=== PATIENT | male | born 1950 | race Caucasian/White ===

== ENCOUNTER 2017-06-23 10:57 | Inpatient (IN) | payer MEDICARE ==
[~2017-06-23] VITALS: Ht 177.8 cm; Wt 99.8 kg
--- OUTSIDE RECORDS SUMMARY | 2017-06-23 11:00 | XMS REPORT ---
Author Author [facility] Address Unknown Phone Unavailable Care Team Providers Care [employer] Name Role Phone Unavailable Unavailable Problems This patient has no known problems. Allergies, Adverse Reactions, Alerts This patient has no known allergies or adverse reactions. Medications This patient has no known medications. Encounters Start Date/Time End Date/Time Encounter Type Admission Type Attending [facility] Facility Care Department Encounter ID 2017-10-10 00:00:00 2017-10-10 00:00:00 Outpatient [facility] [id number] 2017-10-10 00:00:00 2017-10-10 00:00:00 Outpatient [facility] [id number] 2017-08-30 00:00:00 2017-08-30 00:00:00 Outpatient [facility] [id number] 2017-08-04 00:00:00 2017-08-04 00:00:00 Outpatient [facility] [id number] 2017-07-07 00:00:00 2017-07-07 00:00:00 Outpatient [facility] [id number] 2017-07-07 00:00:00 2017-07-07 00:00:00 Outpatient [facility] [id number] 2017-06-20 00:00:00 2017-06-20 00:00:00 Outpatient [facility] [id number] 2017-06-13 00:00:00 2017-06-13 00:00:00 Outpatient [facility] [id number] 2017-06-09 14:55:14 2017-06-09 14:55:14 Outpatient [facility] [id number] 2017-06-08 09:49:45 2017-06-08 09:49:45 Outpatient [facility] [id number] 2017-06-06 09:58:27 2017-06-06 09:58:27 Outpatient [facility] [id number] 2017-06-02 00:00:00 2017-06-02 00:00:00 Outpatient [facility] [id number] 2017-06-02 00:00:00 2017-06-02 00:00:00 Outpatient [facility] [id number] 2017-05-30 00:00:00 2017-05-30 00:00:00 Outpatient [facility] [id number] 2017-05-26 12:56:50 2017-05-26 12:56:50 Outpatient [facility] [id number] 2017-05-26 11:14:20 2017-05-26 11:14:20 Outpatient [facility] [id number] 2017-05-19 15:03:02 2017-05-19 15:03:02 Outpatient [facility] [id number] 2017-05-19 00:00:00 2017-05-19 00:00:00 Outpatient [facility] [id number] 2017-05-12 00:00:00 2017-05-12 00:00:00 Outpatient [facility] [id number] 2017-05-12 00:00:00 2017-05-12 00:00:00 Outpatient [facility] [id number] 2017-05-11 00:00:00 2017-05-11 00:00:00 Outpatient [facility] [id number] 2017-05-09 00:00:00 2017-05-09 00:00:00 Outpatient [facility] [id number] 2017-05-09 00:00:00 2017-05-09 00:00:00 Outpatient [facility] [id number] 2017-05-05 00:00:00 2017-05-05 00:00:00 Outpatient [facility] [id number] 2017-05-03 00:00:00 2017-05-03 00:00:00 Outpatient [facility] [id number] 2017-04-25 13:07:18 2017-04-25 13:07:18 Outpatient [facility] [id number] 2017-04-25 11:36:27 2017-04-25 11:36:27 Outpatient [facility] [id number] 2017-02-28 00:00:00 2017-02-28 00:00:00 Outpatient [facility] [id number] 2017-02-28 00:00:00 2017-02-28 00:00:00 Outpatient [facility] [id number] 2017-02-17 13:19:16 2017-02-17 13:19:16 Outpatient [facility] [id number] 2017-02-01 10:49:24 2017-02-01 10:49:24 Outpatient [facility] [id number] 2016-11-29 14:51:45 2016-11-29 14:51:45 Outpatient [facility] [id number] 2016-11-29 14:33:14 2016-11-29 14:33:14 Outpatient [facility] [id number] 2016-11-29 11:09:00 2016-11-29 11:09:00 Outpatient [facility] [id number] 2016-11-25 12:33:37 2016-11-25 12:33:37 Outpatient [facility] [id number] 2016-11-25 09:26:03 2016-11-25 09:26:03 Outpatient [facility] [id number] 2016-11-24 00:00:00 2016-11-24 00:00:00 Outpatient [facility] [id number] 2016-11-23 09:42:57 2016-11-23 09:42:57 Outpatient [facility] [id number] 2016-11-18 00:00:00 2016-11-18 00:00:00 Outpatient [facility] [id number] 2016-11-18 00:00:00 2016-11-18 00:00:00 Outpatient [facility] [id number] 2016-11-18 00:00:00 2016-11-18 00:00:00 Outpatient [facility] [id number] 2016-11-17 00:00:00 2016-11-17 00:00:00 Outpatient [facility] [id number] 2016-11-16 00:00:00 2016-11-16 00:00:00 Outpatient [facility] [id number] 2016-09-23 11:09:00 2016-09-23 11:09:00 Outpatient [facility] [id number] 2016-09-22 13:52:22 2016-09-22 13:52:22 Outpatient [facility] [id number] 2016-09-22 11:24:00 2016-09-22 11:24:00 Outpatient [facility] [id number] 2016-09-20 12:36:52 2016-09-20 12:36:52 Outpatient [facility] [id number] 2016-09-20 10:16:00 2016-09-20 10:16:00 Outpatient [facility] [id number] 2016-09-17 00:00:00 2016-09-17 00:00:00 Outpatient [facility] [id number] 2016-09-16 00:00:00 2016-09-16 00:00:00 Outpatient [facility] [id number] 2016-09-15 16:24:00 2016-09-15 16:24:00 Outpatient [facility] [id number] 2016-09-15 15:47:00 2016-09-15 15:47:00 Outpatient [facility] [id number] 2016-09-15 14:30:00 2016-09-15 14:30:00 [facility] [id number] 2016-09-14 12:15:00 2016-09-14 12:15:00 Outpatient [facility] [id number] 2016-09-13 00:00:00 2016-09-13 00:00:00 Outpatient [facility] [id number] 2016-09-13 00:00:00 2016-09-13 00:00:00 Outpatient [facility] [id number] 2016-09-13 00:00:00 2016-09-13 00:00:00 Outpatient [facility] [id number] 2016-09-10 00:00:00 2016-09-10 00:00:00 Outpatient [facility] [id number] 2016-09-10 00:00:00 2016-09-10 00:00:00 Outpatient [facility] [id number] 2016-09-10 00:00:00 2016-09-10 00:00:00 Outpatient [facility] [id number] 2016-09-09 11:39:00 2016-09-09 11:39:00 Outpatient [facility] [id number] 2016-09-08 00:00:00 2016-09-08 00:00:00 Outpatient [facility] [id number] 2016-09-08 00:00:00 2016-09-08 00:00:00 Outpatient [facility] [id number] 2016-09-07 00:00:00 2016-09-07 00:00:00 Outpatient [facility] [id number] 2016-09-07 00:00:00 2016-09-07 00:00:00 Outpatient [facility] [id number] 2016-09-06 00:00:00 2016-09-06 00:00:00 [facility] [id number] 2016-08-31 12:19:39 2016-08-31 12:19:39 [facility] [id number] 2016-08-30 14:18:34 2016-08-30 14:18:34 [facility] [id number] 2016-08-26 12:46:23 2016-08-26 12:46:23 Outpatient [facility] [id number] 2016-08-26 12:08:26 2016-08-26 12:08:26 Outpatient [facility] [id number] 2016-08-24 00:00:00 2016-08-24 00:00:00 Outpatient [facility] [id number] 2016-08-23 09:29:00 2016-08-23 09:29:00 Outpatient [facility] [id number] 2016-08-20 13:48:00 2016-08-20 13:48:00 Outpatient [facility] [id number] 2016-08-17 11:54:15 2016-08-17 11:54:15 Outpatient [facility] [id number]
[2017-06-23] MEDS ORDERED: ASPIRIN 81 MG CHEW TAB PO ONE ×2 (11:15)
--- NOTE | 2017-06-23 11:34 | Diagnostic Imaging Report ---
PROCEDURE: A single AP view of the chest. COMPARISON: None. INDICATIONS: FLU, COUGH FINDINGS: Lines/tubes: None. Lungs: The lungs are poorly inflated with bibasilar atelectasis and vascular crowding. Left upper lobe and possibly retrocardiac opacity. Pleura: Likely small right pleural effusion. There is no pneumothorax. Heart and mediastinum: Cardiac silhouette is accentuated by low lung volumes and AP technique. Bones: No acute bony abnormality. IMPRESSION: Limited exam secondary to body habitus and low lung volumes. Left upper lobe and possible retrocardiac opacity may reflect pneumonia in the appropriate clinical context. Dictated by: Daniel Marlow M.D. on 06/23/2017 at 11:34 Electronically approved by: Daniel Marlow M.D. on 06/23/2017 at 11:34
[2017-06-23 11:50] LABS: BASOPHILS # (AUTO) 0.1 (0.0-0.1); BASOPHILS % 0.4 % (0.0-1.0); EOSINOPHILS # (AUTO) 0.2 (0.0-0.4); EOSINOPHILS % 0.9 % (0.0-6.0); HEMATOCRIT 40.5 % (38.2-49.6); HEMOGLOBIN 12.7 g/dL (14.0-18.0); LYMPHOCYTES # (AUTO) 9.1 (1.0-3.2); LYMPHOCYTES % 46.4 % (18.0-39.1); MEAN CORPUSCULAR HEMOGLOBIN 28.4 pg (28-32); MEAN CORPUSCULAR HGB CONC 31.4 g/dL (31-35); MEAN CORPUSCULAR VOLUME 90.6 fL (81-99); MONOCYTES # (AUTO) 1.2 (0.2-0.8); MONOCYTES % 6.3 % (4.4-11.3); NEUTROPHILS % 45.6 % (38.7-80.0); PLATELET COUNT 317 x10e3/uL (140-360); RED BLOOD COUNT 4.47 x10e6/uL (4.3-5.7); RED CELL DISTRIBUTION WIDTH 15.9 % (11.7-14.4)
[2017-06-23] MEDS ORDERED: AZITHROMYCIN 500MG/NS 250 ML 250 ML IV STA (11:54)
[2017-06-23] MEDS ORDERED: CEFTRIAXONE SOD 1 GM VIAL INJ ONE (12:00)
[2017-06-23 12:01] LABS: INR 1.06; PARTIAL THROMBOPLASTIN TIME 27.5 seconds (23.8-35.5)
[2017-06-23 12:08] LABS: ALANINE AMINOTRANSFERASE 12 IU/L (0-55); ALBUMIN 3.5 g/dL (3.5-5.0); ALKALINE PHOSPHATASE 90 IU/L (40-150); ANION GAP 12.6 mmol/L (8-16); BLOOD UREA NITROGEN 17 mg/dL (7-26); BUN/CREATININE RATIO 16 (6-25); CALCIUM 9.5 mg/dL (8.4-10.2); CARBON DIOXIDE 29 mmol/L (22-29); CHLORIDE 95 mmol/L (98-107); CREATINE KINASE 43 IU/L (30-200); CREATININE, SERUM 1.09 mg/dL (0.72-1.25); EST GLOMERULAR FILTRATION RATE > 60 ML/MIN (60-); GLUCOSE 186 mg/dL (74-118); POTASSIUM 4.6 mmol/L (3.5-5.1); SODIUM 132 mmol/L (136-145)
[2017-06-23] MEDS ORDERED: AZITHROMYCIN 500MG/SOD CHL 0.9% 250ML BAG IV SCH (14:00)
[2017-06-23] MEDS ORDERED: DEXTROSE 50% SYRINGE 50 ML IV PRN (14:30)
[2017-06-23] MEDS ORDERED: CEFTRIAXONE SOD 1 GM VIAL IV SCH (14:30)
[2017-06-23] MEDS: SODIUM CHLORIDE 0.9% 1000ML 1,000 ML IV SCH (15:09)
[2017-06-23 16:20] VITALS: BP 143/81
[2017-06-23] MEDS: INSULIN REGULAR, HUMAN 100 UNIT/1 ML 3ML VIAL SQ SCH ×2 (16:30→20:36)
[2017-06-23 16:33] LABS: ABG PCO2 48 mmHg (41-51); ABG PH 7.36 (7.31-7.41)
[2017-06-23 16:34] LABS: ABG HCO3 27 mmol/L (23-28); ABG PO2 48 mmHg (80-105)
[2017-06-23 16:47] VITALS: BP 143/81
[2017-06-23] MEDS ORDERED: THEOPHYLLINE A200 MG PO (16:58)
[2017-06-23] MEDS ORDERED: AMLODIPINE BESY10 MG PO (16:58)
[2017-06-23] MEDS ORDERED: ATROVENT HFA12.9 GM (16:58)
[2017-06-23] MEDS ORDERED: OMEPRAZOLE40 MG PO (16:58)
[2017-06-23] MEDS ORDERED: ATORVASTATIN CA20 MG PO (16:58)
[2017-06-23] MEDS ORDERED: VASOTEC10 M1 PO (16:58)
[2017-06-23] MEDS ORDERED: PROPRANOLOL HCL40 MG PO (16:58)
[2017-06-23] MEDS ORDERED: CLOTRIMAZOLE15 GM TOP (16:58)
[2017-06-23] MEDS ORDERED: HYDROCHLOROTHIA25 MG PO (16:58)
[2017-06-23] MEDS ORDERED: VENTOLIN HFA18 GM (16:58)
[2017-06-23] MEDS ORDERED: GLIPIZIDE-METF1 EAC2 PO (16:58)
[2017-06-23] MEDS ORDERED: GABAPENTIN300 MG PO (16:58)
[2017-06-23 17:00] LABS: BLAST CELLS % MANUAL 1; BURR CELLS SLIG; EOSINOPHILS % (MANUAL) 1 % (0-7); HYPOCHROMASIA MODERATE; LYMPHOCYTES % (MANUAL) 50 % (19-48); MONOCYTES % (MANUAL) 5 % (3.4-9.0); NEUTROPHILS % (MANUAL) 43 % (40-74); OVALOCYTES FEW; PLATELET ESTIMATE ADEQUATE; RBC MORPHOLOGY COMMENT ABNORMAL
[2017-06-23 19:10] VITALS: BP 134/65
[2017-06-23 20:00] VITALS: BP 134/65
[2017-06-23] MEDS: CEFTRIAXONE SOD 1 GM VIAL IV SCH (20:19)
[2017-06-24] VITALS (8 sets, daily range): BP systolic 98–159; BP diastolic 56–70
[2017-06-24] MEDS: SODIUM CHLORIDE 0.9% 1000ML 1,000 ML IV SCH (03:17)
[2017-06-24 06:25] LABS: BASOPHILS # (AUTO) 0.1 (0.0-0.1); BASOPHILS % 0.5 % (0.0-1.0); EOSINOPHILS # (AUTO) 0.2 (0.0-0.4); EOSINOPHILS % 0.9 % (0.0-6.0); HEMATOCRIT 43.1 % (38.2-49.6); HEMOGLOBIN 13.4 g/dL (14.0-18.0); LYMPHOCYTES # (AUTO) 9.4 (1.0-3.2); LYMPHOCYTES % 54.3 % (18.0-39.1); MEAN CORPUSCULAR HEMOGLOBIN 28.3 pg (28-32); MEAN CORPUSCULAR HGB CONC 31.1 g/dL (31-35); MEAN CORPUSCULAR VOLUME 90.9 fL (81-99); MONOCYTES # (AUTO) 1.2 (0.2-0.8); MONOCYTES % 7.1 % (4.4-11.3); NEUTROPHILS # (AUTO) 6.4 (2.1-6.9); NEUTROPHILS % 36.9 % (38.7-80.0); PLATELET COUNT 305 x10e3/uL (140-360); RED BLOOD COUNT 4.74 x10e6/uL (4.3-5.7); RED CELL DISTRIBUTION WIDTH 15.8 % (11.7-14.4)
--- NOTE | 2017-06-24 06:52 | Diagnostic Imaging Report ---
EXAMINATION: CHEST SINGLE (PORTABLE) INDICATION: Pneumonia. COMPARISON: 06/23/2017 FINDINGS: TUBES and LINES: None. LUNGS: Improving lung volumes. Persistent left upper lobe airspace opacity. There is mild prominence of the central pulmonary vasculature, consistent with pulmonary venous congestion. PLEURA: No pleural effusion or pneumothorax. HEART AND MEDIASTINUM: Cardiac size is mildly enlarged. There are atherosclerotic calcifications within the aorta. BONES AND SOFT TISSUES: No acute osseous lesion. Soft tissues are unremarkable. UPPER ABDOMEN: No free air under the diaphragm. IMPRESSION: 1. Stable left upper lobe airspace opacity compatible with pneumonia. 2. Mild vascular congestion with improved lung volumes. Signed by: Dr. Eric Robin M.D. on 06/24/2017 6:45 AM
[2017-06-24 06:54] LABS: ALANINE AMINOTRANSFERASE 11 IU/L (0-55); ALBUMIN 3.5 g/dL (3.5-5.0); ALBUMIN/GLOBULIN RATIO 0.9 (0.8-2.0); ALKALINE PHOSPHATASE 85 IU/L (40-150); ANION GAP 13.3 mmol/L (8-16); BLOOD UREA NITROGEN 11 mg/dL (7-26); BUN/CREATININE RATIO 13 (6-25); CALCIUM 9.8 mg/dL (8.4-10.2); CARBON DIOXIDE 30 mmol/L (22-29); CHLORIDE 100 mmol/L (98-107); CREATININE, SERUM 0.85 mg/dL (0.72-1.25); EST GLOMERULAR FILTRATION RATE > 60 ML/MIN (60-); GLUCOSE 127 mg/dL (74-118); POTASSIUM 4.3 mmol/L (3.5-5.1); SODIUM 139 mmol/L (136-145)
[2017-06-24] MEDS: ALBUTEROL/IPRATROPIUM 3 ML NEB NEB SCH ×2 (07:00→21:20)
[2017-06-24] MEDS: INSULIN REGULAR, HUMAN 100 UNIT/1 ML 3ML VIAL SQ SCH ×4 (07:30→20:11)
[2017-06-24] MEDS: HYDROCHLOROTHIAZIDE 25 MG TAB PO SCH (08:50)
[2017-06-24] MEDS: AZITHROMYCIN 500MG/NS 250 ML 250 ML IV SCH (08:50)
[2017-06-24] MEDS: CEFTRIAXONE SOD 1 GM VIAL IV SCH (08:50)
[2017-06-24] MEDS: THEOPHYLLINE 200 MG TABCR PO SCH ×2 (08:51→09:00)
[2017-06-24] MEDS: ENALAPRIL MALEATE 10 MG TAB PO SCH (08:51)
[2017-06-24] MEDS: AMLODIPINE BESYLATE 10 MG TAB PO SCH (08:51)
[2017-06-24] MEDS: GABAPENTIN 300 MG CAP PO SCH (08:51)
[2017-06-24] MEDS: PANTOPRAZOLE SOD 40 MG TABEC PO SCH (08:51)
[2017-06-24] MEDS: PROPRANOLOL HCL 40 MG TAB PO SCH ×2 (08:51→16:21)
[2017-06-24 08:58] LABS: EOSINOPHILS % (MANUAL) 1 % (0-7); LYMPHOCYTES % (MANUAL) 41 % (19-48); MONOCYTES % (MANUAL) 4 % (3.4-9.0); NEUTROPHILS % (MANUAL) 40 % (40-74)
[2017-06-24 08:59] LABS: PLATELET ESTIMATE ADEQUATE; PLATELET MORPHOLOGY COMMENT NORMAL; RBC MORPHOLOGY COMMENT NORMAL
[2017-06-24 09:00] LABS: ANISOCYTOSIS SLIG; POIKILOCYTOSIS SLIGHT
[2017-06-24] MEDS: THEOPHYLLINE 300 MG TABSR PO SCH (09:29)
[2017-06-24] MEDS: PIPER-TAZ 3.375 GM 50 ML IV SCH ×2 (16:06→21:20)
--- NOTE | 2017-06-24 16:22 | Consultation ---
DATE OF CONSULTATION: PULMONARY CONSULTATION REASON FOR CONSULTATION: Pneumonia and shortness of breath. HPI: Mr. Ku is a 66-year-old male who presented to the emergency room with the complaints of shortness of breath and cough going on for 4 to 5 days. Patient has a reported history of lung cancer. He says that he is being followed up at [facility]. He has a nodule in his left lung, and he is getting radiation treatment. He has not received any chemotherapy. He denies any chest pain, nausea, vomiting or diarrhea. REVIEW OF SYSTEMS GENERAL: Denies any fever, chills, or weight loss. HEAD: Denies any head trauma. ENT: Denies any earache but has some hearing problem. CVS: Denies any chest pain. RESPIRATORY: Shortness of breath. REST OF THE REVIEW SYSTEMS: Negative except as in HPI. PAST MEDICAL HISTORY: Lung cancer, hyperlipidemia, hypertension, diabetes, COPD. Patient is receiving radiation treatment. PAST SURGICAL HISTORY: Right knee replacement. FAMILY AND SOCIAL HISTORY: He lives with his . He used to work for a [employer], currently disabled. He has been a smoker for 50 years. He used to smoke 4 packs per day for 40 years, now smoking half a pack per day. PHYSICAL EXAMINATION VITALS: Temperature 97.5, pulse 56, blood pressure 110/56. Respiratory rate of 18. O2 sat 94% on 4 liters. SKIN: Warm and dry. HEENT: Head is atraumatic, normocephalic. Pupils are reactive. NECK: Supple. CHEST: Wheezing and crackles. HEART: S1, S2 audible. ABDOMEN: Soft, nontender and nondistended. EXTREMITIES: No clubbing or cyanosis. Trace edema. Chronic skin changes. LABS: White count of 17,000 today. It was 19,000 when he came in. Hemoglobin 12.7, platelets 317. Chemistry is within normal limits. INR is 1.06. Blood gas on admission was 7.36, pCO2 48, pO2 48. It is a venous blood gas. Blood cultures are pending. CHEST X-RAY: I have reviewed the images. Patient possibly has increased bronchovascular markings and possible left upper lobe infiltrate. This abnormality on the chest x-ray could be due to the history of lung cancer. ASSESSMENT AND PLAN: Mr. Ku is a 66-year-old male who presented with fever, cough and chills. The patient reports that he is under treatment of cancer by an oncologist and receiving radiation treatment. He presented with shortness of breath and possible pneumonia. Currently improving; however, he still has cough and wheezing. IMPRESSION 1. Pneumonia. 2. Lung cancer. Patient follows up with Andrew [facility]ne[facility], so I do not know the details of it. He said it is in the left lung. 3. Hypertension. 4. Diabetes. 5. Bdicr-oy-afldkwe hypoxic respiratory failure. 6. Obstructive sleep apnea. Patient use continuous positive airway pressure at home. PLAN 1. Continue the patient on azithromycin. I will discontinue Rocephin and start the patient on IV Zosyn for anaerobic coverage as patient can have postobstructive pneumonia since he has history of lung cancer. 2. CT of the chest without contrast. 3. Discontinue the IV fluids. 4. Nebulizer treatments. Job#: [id number]
--- NOTE | 2017-06-24 19:34 | Diagnostic Imaging Report ---
CT chest without enhancement CPT code: 83215 INDICATION: Abnormal chest x-ray, shortness of breath TECHNIQUE: Thin collimation axial images obtained from the thoracic inlet to the level of the diaphragm without intravenous contrast. RADIATION DOSE: Total DLP: 542.23 mGy*cm Estimated effective dose: (DLP x 0.015 x size factor) mSv CTDIvol has been reviewed. It is below the limits set by the Radiation Protocol Committee (RPC). COMPARISON: Chest x-ray 06/24/2017. CHEST FINDINGS: Lymph nodes: No enlarged axillary or supraclavicular lymph nodes. Mediastinal lymph nodes are increased in number and size. A prevascular lymph node measures 2.3 x 1.1 cm. An inferior right paratracheal lymph node measures 2.5 x 2.0 cm. Subcarinal lymph node measures 1.4 x 2.8 cm. Lack of intravenous contrast evaluation of the [place] for lymphadenopathy. There are no enlarged cardiophrenic lymph nodes. Thyroid: Normal in size without mass in the visualized parenchyma.. Mediastinum: The heart is enlarged with coronary artery calcifications. No pericardial effusions. Main pulmonary artery measures 4 cm in diameter. The ascending aorta measures 3.8 cm in diameter with calcifications of the arch. The esophagus is collapsed. Lungs: Right: Paraseptal and centrilobular emphysematous changes and diffuse bronchial wall thickening. No significant bronchiectasis. There is subpleural groundglass attenuation and apical the basilar gradient suggestive of early fibrosis. A punctate calcified granuloma is adjacent to the minor fissure. No soft tissue mass. There is a small amount of atelectasis in the posterior costophrenic angle. Left: Paraseptal and centrilobular emphysema with groundglass attenuation and anterior focal pleural thickening measuring 9 mm. There are bands of soft tissue that extends towards the hilum of the upper lobe. There is diffuse bronchial wall thickening. Nodule in the inferior upper lobe measures 1.4 x 0.7 cm. There is mild subpleural reticulation at the base of the lungs suggestive of fibrosis. Pleura: No pleural effusions.. ABDOMEN FINDINGS: There are bilateral adrenal adenomata, measuring 2.7 cm on the right and 2.5 cm on the left. Visualized portion of the gallbladder, pancreas, and liver are unremarkable. Bones: There are degenerative changes of the thoracic spine without compression deformity. No evidence of lytic or blastic lesion.. IMPRESSION: 1. Emphysema and bronchial wall thickening consistent with chronic bronchitis. Mild bibasilar fibrosis. 2. Focal pleural thickening in the left upper lobe with soft tissue strands extending to the hilum of the upper lobe. This could be the sequela of inflammation but a neoplastic process cannot be excluded. Nodule in the inferior left upper lobe should be periodically monitored to confirm stability. 3. Significant mediastinal lymphadenopathy. Neoplasm should be strongly considered. 4. Cardiomegaly and pulmonary artery hypertension. 5. Bilateral adrenal adenomata. Signed by: Dr. Magui Fraser MD on 06/24/2017 7:31 PM
[2017-06-24] MEDS: ATORVASTATIN 20 MG TAB PO SCH (20:11)
[2017-06-25] VITALS (8 sets, daily range): BP systolic 107–136; BP diastolic 58–76
[2017-06-25] MEDS: ALBUTEROL/IPRATROPIUM 3 ML NEB NEB SCH ×3 (03:40→20:25)
[2017-06-25] MEDS: PIPER-TAZ 3.375 GM 50 ML IV SCH ×3 (05:03→21:24)
[2017-06-25] MEDS: INSULIN REGULAR, HUMAN 100 UNIT/1 ML 3ML VIAL SQ SCH ×4 (07:30→20:45)
[2017-06-25] MEDS: PROPRANOLOL HCL 40 MG TAB PO SCH ×2 (09:00→16:33)
[2017-06-25] MEDS: PANTOPRAZOLE SOD 40 MG TABEC PO SCH (09:00)
[2017-06-25] MEDS: GABAPENTIN 300 MG CAP PO SCH (09:00)
[2017-06-25] MEDS: AZITHROMYCIN 500MG/NS 250 ML 250 ML IV SCH (09:00)
[2017-06-25] MEDS: AMLODIPINE BESYLATE 10 MG TAB PO SCH (09:00)
[2017-06-25] MEDS: ENALAPRIL MALEATE 10 MG TAB PO SCH (09:00)
[2017-06-25] MEDS: THEOPHYLLINE 300 MG TABSR PO SCH (09:00)
[2017-06-25] MEDS: HYDROCHLOROTHIAZIDE 25 MG TAB PO SCH (09:00)
[2017-06-25] MEDS: ATORVASTATIN 20 MG TAB PO SCH (20:12)
[2017-06-26] VITALS (8 sets, daily range): BP systolic 111–147; BP diastolic 65–78
[2017-06-26] MEDS: ALBUTEROL/IPRATROPIUM 3 ML NEB NEB SCH ×4 (03:10→19:40)
[2017-06-26] MEDS: PIPER-TAZ 3.375 GM 50 ML IV SCH ×3 (05:43→21:57)
[2017-06-26 06:13] LABS: BASOPHILS # (AUTO) 0.1 (0.0-0.1); BASOPHILS % 0.3 % (0.0-1.0); EOSINOPHILS # (AUTO) 0.1 (0.0-0.4); EOSINOPHILS % 0.8 % (0.0-6.0); HEMATOCRIT 38.2 % (38.2-49.6); HEMOGLOBIN 11.9 g/dL (14.0-18.0); LYMPHOCYTES # (AUTO) 9.4 (1.0-3.2); LYMPHOCYTES % 60.1 % (18.0-39.1); MEAN CORPUSCULAR HEMOGLOBIN 28.4 pg (28-32); MEAN CORPUSCULAR HGB CONC 31.2 g/dL (31-35); MEAN CORPUSCULAR VOLUME 91.2 fL (81-99); MONOCYTES % 6.4 % (4.4-11.3); PLATELET COUNT 222 x10e3/uL (140-360); RED BLOOD COUNT 4.19 x10e6/uL (4.3-5.7); RED CELL DISTRIBUTION WIDTH 15.8 % (11.7-14.4)
[2017-06-26 06:29] LABS: ANION GAP 10.7 mmol/L (8-16); BLOOD UREA NITROGEN 5 mg/dL (7-26); BUN/CREATININE RATIO 7 (6-25); CALCIUM 9.4 mg/dL (8.4-10.2); CARBON DIOXIDE 33 mmol/L (22-29); CHLORIDE 96 mmol/L (98-107); CREATININE, SERUM 0.75 mg/dL (0.72-1.25); EST GLOMERULAR FILTRATION RATE > 60 ML/MIN (60-); GLUCOSE 128 mg/dL (74-118); POTASSIUM 3.7 mmol/L (3.5-5.1); SODIUM 136 mmol/L (136-145)
--- NOTE | 2017-06-26 06:49 | Diagnostic Imaging Report ---
EXAMINATION: CHEST SINGLE (PORTABLE) INDICATION: Lung carcinoma COMPARISON: 06/24/2017 FINDINGS: TUBES and LINES: None. LUNGS: Lungs are not well inflated. There is perihilar interstitial opacities, consistent with interstitial edema. PLEURA: No pleural effusion or pneumothorax. HEART AND MEDIASTINUM: Cardiac size is mildly enlarged. There are atherosclerotic calcifications within the aorta. BONES AND SOFT TISSUES: No acute osseous lesion. Soft tissues are unremarkable. UPPER ABDOMEN: No free air under the diaphragm. IMPRESSION: Findings are compatible with pulmonary edema Signed by: Dr. Eric Robin M.D. on 06/26/2017 6:46 AM
[2017-06-26] MEDS: INSULIN REGULAR, HUMAN 100 UNIT/1 ML 3ML VIAL SQ SCH ×4 (07:30→21:57)
[2017-06-26] MEDS: AZITHROMYCIN 500MG/NS 250 ML 250 ML IV SCH (08:12)
[2017-06-26] MEDS: PROPRANOLOL HCL 40 MG TAB PO SCH ×2 (08:12→17:00)
[2017-06-26] MEDS: HYDROCHLOROTHIAZIDE 25 MG TAB PO SCH (08:12)
[2017-06-26] MEDS: AMLODIPINE BESYLATE 10 MG TAB PO SCH (08:13)
[2017-06-26] MEDS: ENALAPRIL MALEATE 10 MG TAB PO SCH (08:13)
[2017-06-26] MEDS: PANTOPRAZOLE SOD 40 MG TABEC PO SCH (08:13)
[2017-06-26] MEDS: GABAPENTIN 300 MG CAP PO SCH (08:13)
[2017-06-26] MEDS: THEOPHYLLINE 300 MG TABSR PO SCH (08:13)
[2017-06-26 11:08] LABS: BAND NEUTROPHILS % (MANUAL) 2 %; LYMPHOCYTES % (MANUAL) 65 % (19-48); MONOCYTES % (MANUAL) 6 % (3.4-9.0); NEUTROPHILS % (MANUAL) 27 % (40-74); PLATELET ESTIMATE ADEQUATE; PLATELET MORPHOLOGY COMMENT NORMAL; RBC MORPHOLOGY COMMENT NORMAL
[2017-06-26] MEDS: ATORVASTATIN 20 MG TAB PO SCH (21:57)
[2017-06-27 00:04] VITALS: BP 124/64
[2017-06-27] MEDS: ALBUTEROL/IPRATROPIUM 3 ML NEB NEB SCH ×3 (03:10→13:00)
[2017-06-27 04:38] VITALS: BP 123/57
[2017-06-27] MEDS: PIPER-TAZ 3.375 GM 50 ML IV SCH (05:44)
[2017-06-27] MEDS: INSULIN REGULAR, HUMAN 100 UNIT/1 ML 3ML VIAL SQ SCH ×2 (07:30→12:00)
[2017-06-27 08:00] VITALS: BP 142/66
[2017-06-27] MEDS: AMLODIPINE BESYLATE 10 MG TAB PO SCH (08:02)
[2017-06-27] MEDS: PANTOPRAZOLE SOD 40 MG TABEC PO SCH (08:02)
[2017-06-27] MEDS: PROPRANOLOL HCL 40 MG TAB PO SCH (08:02)
[2017-06-27] MEDS: GABAPENTIN 300 MG CAP PO SCH (08:02)
[2017-06-27] MEDS: ENALAPRIL MALEATE 10 MG TAB PO SCH (08:02)
[2017-06-27] MEDS: THEOPHYLLINE 300 MG TABSR PO SCH (08:02)
[2017-06-27] MEDS: HYDROCHLOROTHIAZIDE 25 MG TAB PO SCH (08:02)
[2017-06-27] MEDS: AZITHROMYCIN 500MG/NS 250 ML 250 ML IV SCH (08:02)
[2017-06-27] MEDS ORDERED: LEVAQUIN500 MG PO (11:56)
[2017-06-27 12:00] VITALS: BP 116/77
[2017-06-27] MEDS ORDERED: ATORVASTATIN 40 MG TAB PO SCH (21:00)
== END 2017-06-27 14:00 | disposition home or self-care (01) | DRG 193 ==
LOC: ER 10:57 → ERHOLD 14:11 → MED/SURG2 15:44
PROVIDERS: ADMIT Internal Medicine; ATTEND Internal Medicine
DX: J18.9 Pneumonia, unspecified organism (principal); J96.21 Acute and chronic respiratory failure with hypoxia; C34.92 Malignant neoplasm of unspecified part of left bronchus or lung; J44.1 Chronic obstructive pulmonary disease with (acute) exacerbation; J44.0 Chronic obstructive pulmonary disease with (acute) lower respiratory infection; E87.1 Hypo-osmolality and hyponatremia; L98.9 Disorder of the skin and subcutaneous tissue, unspecified; G47.33 Obstructive sleep apnea (adult) (pediatric); E11.9 Type 2 diabetes mellitus without complications; F17.210 Nicotine dependence, cigarettes, uncomplicated
CPT/HCPCS: 36415; 36600; 71045; 71250; 80048; 80053; 82550; 82553; 82805; 82948; 83605; 83880; 84484; 85025; 85610; 85730; 87040; 87400; 93005; 94640; 94660; 99285; J0456; J0696; J2543; J7030

== ENCOUNTER 2018-01-10 03:53 | Emergency (ER) | payer MEDICARE ==
[~2018-01-10] VITALS: Ht 177.8 cm; Wt 117.9 kg
[~2018-01-10 03:53] MED LIST: AMLODIPINE BESY10 MG PO; ATORVASTATIN CA20 MG PO; ATROVENT HFA12.9 GM; CLOTRIMAZOLE15 GM TOP; GABAPENTIN300 MG PO; GLIPIZIDE-METF1 EAC2 PO; HYDROCHLOROTHIA25 MG PO; LEVAQUIN500 MG PO; OMEPRAZOLE40 MG PO; PROPRANOLOL HCL40 MG PO; THEOPHYLLINE A200 MG PO; VASOTEC10 M1 PO; VENTOLIN HFA18 GM
[2018-01-10] MEDS ORDERED: OXYMETAZOLINE HCL 0.05% NAS 1 SPRAY BTL ONE (04:15)
== END 2018-01-10 05:03 | disposition home or self-care (01) ==
LOC: ER 03:53
DX: R04.0 Epistaxis (principal); J44.9 Chronic obstructive pulmonary disease, unspecified; Z99.81 Dependence on supplemental oxygen; I10 Essential (primary) hypertension; E11.9 Type 2 diabetes mellitus without complications; Z85.118 Personal history of other malignant neoplasm of bronchus and lung; F17.210 Nicotine dependence, cigarettes, uncomplicated
CPT/HCPCS: 99284